=== PATIENT | male | born 1945 | race Caucasian/White ===

== ENCOUNTER 2018-06-12 09:22 | Emergency (ER) | payer MEDICARE, OTHER ==
[2018-06-12] MEDS ORDERED: MORPHINE SULFATE 4 MG/ML SYRINGE IVP STA (09:39)
--- NOTE | 2018-06-12 09:47 | ED ---
General Adult HPI - General Chief complaint: Fall Stated complaint: Fall- hip injury Time Seen by Provider: 06/12/18 09:29 Source: patient, family, RN notes reviewed Mode of arrival: ambulatory Limitations: no limitations - History of Present Illness Initial comments: 72-year-old male presents to the emergency department for a chief complaint of right hip pain since last night. Patient was walking around to the back of the hotel when he slipped on ice and fell on his right hip and right shoulder. Patient denies any pain in the right shoulder but states he has a very painful right hip. He states he has not been bearing weight on the hip since last night and has been using a urinal to urinate. States he can limp of the hip but it is painful. Patient denies hitting his head or neck. He denies any chest or abdominal pain. No back pain. Patient states he is in town taking care of his [id number] but is living in [facility]. Patient concerned about this as he does not necessarily want surgery here due to the distance from his home. Patient has no other complaints at this time including shortness of breath, chest pain, abdominal pain, nausea or vomiting, headache, or visual changes. - Related Data Home Medications Medication Instructions Recorded Confirmed Simvastatin [Zocor] 20 mg PO DAILY 06/12/18 06/12/18 Tamsulosin [Flomax] 0.4 mg PO HS 06/12/18 06/12/18 Previous Rx's Medication Instructions Recorded HYDROcodone/APAP 5-325MG [[place] 1 tab PO Q6HR PRN #12 tab 06/12/18 5-325] Allergies Allergy/AdvReac Type Severity Reaction Status Date / Time No Known Allergies Allergy Verified 06/12/18 09:52 Review of Systems ROS Statement: Those systems with pertinent positive or pertinent negative responses have been documented in the HPI. ROS Other: All systems not noted in ROS Statement are negative. Past Medical History Past Medical History: Hyperlipidemia Additional Past Medical History / Comment(s): BPH History of Any Multi-Drug Resistant Organisms: None Reported Past Surgical History: Hernia Repair Past Psychological History: No Psychological Hx Reported Smoking Status: Current every day smoker Past Alcohol Use History: Occasional Past Drug Use History: None Reported General Exam Limitations: no limitations General appearance: alert, in no apparent distress Head exam: Present: atraumatic, normocephalic, normal inspection Eye exam: Present: normal appearance, PERRL, EOMI. Absent: scleral icterus, conjunctival injection, periorbital swelling ENT exam: Present: normal exam, mucous membranes moist Neck exam: Present: normal inspection, full ROM. Absent: tenderness, meningismus, lymphadenopathy Respiratory exam: Present: normal lung sounds bilaterally. Absent: respiratory distress, wheezes, rales, rhonchi, stridor Cardiovascular Exam: Present: regular rate, normal rhythm, normal heart sounds. Absent: systolic murmur, diastolic murmur, rubs, gallop, clicks Extremities exam: Present: tenderness (Tenderness to the right hip), normal capillary refill (Capillary refill less than 2 seconds in lower extremities, DP pulses 2+ and equal bilaterally), other (Sensation intact in lower extremities.) . Absent: full ROM (Patient only able to flex the hip to about 10 before becomes too painful. Patient has significant pain with passive flexion of the hip starting at 10 as well as external rotation.) Course Vital Signs 06/12/18 09:25 Temperature 98 F Pulse Rate 86 Respiratory 20 Rate Blood Pressure 151/85 O2 Sat by Pulse 99 Oximetry Medical Decision Making - Medical Decision Making 72-year-old male presents to the emergency department for a chief complaint of right hip pain since last night. Patient slipped on ice. He did not hit his head. Patient does have pain with range of motion. He is able to relate but is limping on the right hip. Neurovascular intact. X-ray of the right hip shows no acute osseous abnormality. However given suspicion of fracture or CT was ordered. CT shows no evidence of fracture or dislocation. However there is soft tissue contusion overlying the right greater trochanter without hematoma. This is likely causing patient's pain. However given patient's difficulty ambulating I did recommend admission. He states he would rather go home and try outpatient medications. He does agree to come back if he has difficulty with ambulation at home. He will return if he has any worsening symptoms. He will follow up with primary care and orthopedics. Disposition Clinical Impression: Contusion, hip Disposition: HOME SELF-CARE Condition: Fair Instructions (If sedation given, give patient instructions): Hip Contusion (ED) Additional Instructions: Please take Motrin for pain. If pain is severe take [place]. Follow-up with orthopedics. Do gentle range of motion with the right hip. Do not drive or operate machinery while taking [place]. If you have worsening symptoms return here to the emergency department. Prescriptions: HYDROcodone/APAP 5-325MG [[place] 5-325] 1 tab PO Q6HR PRN #12 tab PRN Reason: Pain Is patient prescribed a controlled substance at d/c from ED?: No Referrals: Nonstaff,Physician [Primary Care Provider] - 1-2 days Leonardo Major DO [Medical Doctor] - 1-2 days Time of Disposition: 11:57
--- NOTE | 2018-06-12 10:41 | XR ---
EXAMINATION TYPE: XR Hip Complete RT DATE OF EXAM: 06/12/2018 COMPARISON: None HISTORY: Fall, pain TECHNIQUE: 2 view right hip FINDINGS: No acute fractures are evident. Femoral head articulates with the acetabulum. Joint spaces preserved. IMPRESSION: 1. No acute osseous abnormality right hip
--- NOTE | 2018-06-12 11:23 | CT ---
EXAMINATION TYPE: CT hip RT wo con DATE OF EXAM: 06/12/2018 COMPARISON: Right hip radiograph dated 06/12/2018 HISTORY: Right hip pain post fall CT DLP: 491.3 mGycm Automated exposure control for dose reduction was used. FINDINGS: There is no evidence of acute fracture or dislocation of the right hip. There is posterior joint spac e narrowing and a subchondral cysts formed within the posterior superior acetabulum. There are also s mall subchondral cysts of the superior acetabulum. Very small osseous protuberance at the anterior fe moral head neck junction relates to a small cam deformity that can predispose this patient to femoral acetabular impingement syndrome clinically. Old healed fracture deformity of the right inferior pubi c ramus is subtle. A punctate nonspecific sclerotic lesion measuring 5 mm is seen of the right iliac bone towards the superior acetabulum. There is osseous bridging of the anterior right sacroiliac join t. No joint space widening. Prostate gland is heterogeneous and appears enlarged although the left lateral aspect of the prostate gland is not seen in the [id number] and therefore accurate measurement cannot be given. Central z one calcifications are incidentally noted. Few colonic diverticula are seen without pericolonic fat s tranding. It girdle musculature is within normal limits of volume and density. There is very mild inf lammatory fat stranding overlying the right greater trochanter possibly related to a soft tissue cont usion. IMPRESSION: 1. NO EVIDENCE OF ACUTE FRACTURE OR DISLOCATION OF THE RIGHT HIP. 2. SOFT TISSUE CONTUSION OVERLYING THE RIGHT GREATER TROCHANTER. NO HEMATOMA. 3. MODERATE RIGHT FEMORAL ACETABULAR ARTHROPATHY. 4. SMALL CAM DEFORMITY THAT CAN PREDISPOSE THIS PATIENT TO FEMORAL ACETABULAR INTERNAL IMPINGEMENT SY NDROME.
[2018-06-12 12:11] VITALS: BP 165/94; PULSE 76; RESP 16; TEMP 98.7
== END 2018-06-12 12:10 | disposition home or self-care (01) ==
LOC: EC 09:22
DX: S70.01XA Contusion of right hip, initial encounter (principal); E78.5 Hyperlipidemia, unspecified; F17.200 Nicotine dependence, unspecified, uncomplicated; Z79.899 Other long term (current) drug therapy; W00.0XXA Fall on same level due to ice and snow, initial encounter; Y93.01 Activity, walking, marching and hiking; Y92.009 Unspecified place in unspecified non-institutional (private) residence as the place of occurrence of the external cause
CPT/HCPCS: 73502; 73700; 99284; 96374; J2270